=== PATIENT | male | born 1980 | race Caucasian/White ===

== ENCOUNTER 2021-11-24 19:40 | Emergency (ER) | payer OTHER ==
[~2021-11-24] VITALS: Ht 172.7 cm; Wt 71.2 kg
--- NOTE | 2021-11-24 20:15 | NUR ---
pt in room 5a c/o testicular pain.
--- NOTE | 2021-11-24 20:24 | NUR ---
Pt provided urine sample, sent to lab.
[2021-11-24 20:28] LABS: *BILIRUBIN,URIN NEGATIVE (NEGATIVE); *BLOOD, URINE NEGATIVE (NEGATIVE); *CLARITY,URINE CLEAR (CLEAR); *COLOR,URINE YELLOW (YELLOW); *KETONES,URINE NEGATIVE (NEGATIVE); *UROBILINOGEN,URINE 0.2 E.U./dl (NORMAL); LEUKOCYTE ESTERASE ,URINE NEGATIVE (NEGATIVE); NITRITE, URINE NEGATIVE (NEGATIVE); PH,URINE 5.5 (5.0-8.0); UGLUCOSE NEGATIVE (NEGATIVE)
[2021-11-24 20:43] LABS: HEMATOCRIT 45.6 % (36.7-47.1); MEAN CORPUSCULAR HEMOGLOBIN 29.9 uug (23.8-33.4); MEAN CORPUSCULAR VOLUME 87.1 fL (73.0-96.2); PLATELET COUNT (AUTO) 257 K/uL (152-348)
[2021-11-24 20:46] LABS: CREATININE 0.9 mg/dL (0.6-1.3); POTASSIUM 3.5 mmol/L (3.5-5.1)
--- NOTE | 2021-11-24 20:51 | NUR ---
Dr. Baltazar at bedside for MSE.
--- NOTE | 2021-11-24 21:35 | NUR ---
control technician at bedside.
[2021-11-24 22:12] VITALS: BP 120/76
--- NOTE | 2021-11-24 22:12 | NUR ---
Patient discharged to home in stable condition. Written and verbal after care instructions given. Patient verbalizes understanding of instructions. Stressed follow up or return to ER for worsening s/s.
== END 2021-11-24 22:13 | disposition home or self-care (01) ==
LOC: ER 19:52
DX: R10.32 Left lower quadrant pain (principal); R59.0 Localized enlarged lymph nodes
CPT/HCPCS: 36415; 76870; 85025; A4663